=== PATIENT | female | born 1985 | race African-American/Black ===

== ENCOUNTER 2017-11-04 06:59 | Inpatient (IN) ==
[2017-11-04] MEDS ORDERED: BUTORPHANOL 1 MG/ML VIAL IV PRN (07:36)
[2017-11-04] MEDS ORDERED: BUTORPHANOL 2 MG/ML VIAL IV PRN (07:36)
[2017-11-04] MEDS ORDERED: ONDANSETRON 4 MG/2 ML VIAL IV PRN ×2 (07:36→13:18)
[2017-11-04] MEDS: LACTATED RINGERS 1,000 ML IV SCH ×2 (07:47→10:28)
[2017-11-04] MEDS ORDERED: AMPICILLIN INJ 2,000 MG in SODIUM CHLORIDE 0.9% 100 ML IV ONE (07:50)
[2017-11-04] MEDS ORDERED: OXYTOCIN/LR 20 UNIT/1,000 ML BAG IV SCH (08:00)
[2017-11-04 08:12] LABS: Basophils % 0.4 % (0.0-0.8); Eosinophils # 0.1 10*3/uL (0.0-0.87); Eosinophils % 1.1 % (0.00-10.9); Hematocrit 34.8 VOL% (35.7-47.0); Hemoglobin 11.4 GM/DL (12.0-16.0); Immature Granulocytes % 0.7 %; Immature Granulocytes Absolute 0.05 #; Lymphocytes # 1.8 10*3/uL (1.4-4.0); Lymphocytes % 24.2 % (21.3-54.2); Mean Corpuscular HGB Conc 32.8 GM/DL (32-36); Mean Corpuscular Hemoglobin 30 PG (27-34); Mean Corpuscular Volume 91.8 FL (87-102); Mean Platelet Volume 10.8 FL (9.6-12.0); Monocytes # 0.7 10*3/uL (0.11-0.8); Monocytes % 9.4 % (1.7-12.7); Neutrophils # 4.9 10*3/uL (1.4-7.4); Neutrophils % 64.2 % (38.7-73.9); Platelet Count 217 T/CUMM (130-400); Red Blood Count 3.79 MC/CUMM (3.8-5.5); Red Cell Distribution Width 14.8 % (9.3-17.3); White Blood Count 7.6 T/CUMM (4-12)
[2017-11-04] MEDS ORDERED: MEPERIDINE 50 MG/1 ML VIAL IV PRN (08:19)
[2017-11-04 08:42] LABS: Albumin 2.8 G/DL (3.4-5.0); Bilirubin,Total 0.4 MG/DL (0.2-1.0); Calcium 8.3 MG/DL (8.5-10.1); Osmolality,Calculated 271.7 MOS/KG (273-304); Total Protein 6.7 G/DL (6.4-8.3)
[2017-11-04] MEDS ORDERED: diphenhydrAMINE 50 MG/1 ML VIAL IV PRN ×2 (09:51)
[2017-11-04] MEDS ORDERED: PROMETHAZINE 25 MG/1 ML VIAL IM ONE (09:51)
[2017-11-04] MEDS ORDERED: hydrOXYzine HCL 25 MG/1 ML VIAL IM PRN (09:51)
[2017-11-04] MEDS ORDERED: ePHEDrine 50 MG/ML AMP IV PRN (09:51)
[2017-11-04] MEDS ORDERED: ONDANSETRON 4 MG/2 ML VIAL IV ONE (09:51)
[2017-11-04] MEDS ORDERED: CITRIC ACID/SODIUM CITRATE 30 ML UDCUP PO ONE (09:52)
[2017-11-04] MEDS ORDERED: FAMOTIDINE 20 MG/2 ML VIAL IV ONE (09:52)
[2017-11-04] MEDS ORDERED: fentaNYL 2 MCG/ROPIV 0.2% EPID 150 ML EPIDURAL SCH (10:00)
[2017-11-04] MEDS ORDERED: AMPICILLIN INJ 1,000 MG in SODIUM CHLORIDE 0.9% 100 ML IV SCH (12:00)
[2017-11-04 12:19] LABS: Apearance,Urine CLEAR (Clear); Bilirubin,Urine Negative (Negative); Blood, Urine Negative (Negative); Glucose,Urine (UA) Negative (Negative); Ketones,Urine Negative (Negative); Mucus,Urine Occasional /LPF (Occasional); Nitrite,Urine Negative (Negative); Protein,Urine Negative; RBC,Urine 1 /HPF (0-4); Squamous Epithelial Cell,Urine Occasional /HPF (0-10); Urine Color Yellow (Yellow); Urine Specific Gravity 1.024 (1.001-1.035); Urine Urobilinogen < 2.0 EU/DL (0.2-1.0); WBC,Urine 2 /HPF (0-6)
[2017-11-04] MEDS ORDERED: miSOPROStol 200 MCG TABLET ONE (13:00)
[2017-11-04] MEDS ORDERED: METHYLERGONOVINE 0.2 MG/1 ML AMP ONE (13:00)
[2017-11-04] MEDS ORDERED: OXYTOCIN/LR 20 UNIT/1,000 ML BAG IV ONE (13:18)
[2017-11-04] MEDS ORDERED: ACETAMINOPHEN 325 MG TABLET PO PRN (13:18)
[2017-11-04] MEDS ORDERED: HYDROCORTISONE 2.5% RECTAL CREAM 30 GM TUBE TOP PRN (13:18)
[2017-11-04] MEDS ORDERED: BISACODYL 10 MG SUPP RECTAL PRN (13:18)
[2017-11-04] MEDS ORDERED: BENZOCAINE 20%/MENTHOL 0.5% SPRAY 56 GM CAN TOP PRN (13:18)
[2017-11-04] MEDS ORDERED: LANOLIN 50% CREAM 0.3 OZ TUBE TOP PRN (13:18)
[2017-11-04] MEDS ORDERED: WITCH HAZEL PADS 100/JAR TOP PRN (13:18)
[2017-11-04] MEDS ORDERED: oxyCODONE/ACETAMINOPHEN 5-325 MG TABLET PO PRN (13:18)
[2017-11-04] MEDS ORDERED: DIPH/TET/ACEL PERT BOOSTER VACCINE 0.5 ML VIAL IM ONE (13:30)
[2017-11-04] MEDS ORDERED: MEASLES/MUMPS/RUBELLA VACCINE 0.5 ML VIAL SUBCUT ONE (13:30)
[2017-11-04] MEDS ORDERED: RHO(D) IMMUNE GLOBULIN 300 MCG SYRINGE IM ONE (14:00)
[2017-11-04] MEDS: DOCUSATE SODIUM 100 MG CAPSULE PO SCH (20:53)
[2017-11-05] MEDS: IBUPROFEN 800 MG TABLET PO PRN ×2 (03:03→12:23)
[2017-11-05] MEDS: oxyCODONE/ACETAMINOPHEN 5-325 MG TABLET PO PRN ×2 (03:04→12:23)
[2017-11-05 06:59] LABS: Basophils % 0.5 % (0.0-0.8); Eosinophils # 0.1 10*3/uL (0.0-0.87); Eosinophils % 1.5 % (0.00-10.9); Hematocrit 30.5 VOL% (35.7-47.0); Hemoglobin 9.8 GM/DL (12.0-16.0); Immature Granulocytes % 0.5 %; Immature Granulocytes Absolute 0.04 #; Lymphocytes % 25.2 % (21.3-54.2); Mean Corpuscular HGB Conc 32.1 GM/DL (32-36); Mean Corpuscular Hemoglobin 30 PG (27-34); Mean Corpuscular Volume 92.7 FL (87-102); Mean Platelet Volume 10.6 FL (9.6-12.0); Monocytes # 0.6 10*3/uL (0.11-0.8); Monocytes % 7.9 % (1.7-12.7); Neutrophils # 5.2 10*3/uL (1.4-7.4); Neutrophils % 64.4 % (38.7-73.9); Platelet Count 163 T/CUMM (130-400); Red Blood Count 3.29 MC/CUMM (3.8-5.5); Red Cell Distribution Width 14.6 % (9.3-17.3); White Blood Count 8.1 T/CUMM (4-12)
[2017-11-05] MEDS: DOCUSATE SODIUM 100 MG CAPSULE PO SCH (08:31)
[2017-11-05] MEDS ORDERED: ONDANSETRON 4 MG TABLET PO PRN (11:59)
[2017-11-05 21:00] VITALS: BP 152/98
== END 2017-11-06 01:15 | disposition home or self-care (01) | DRG 560 ==
LOC: N.LDOUT 06:59 → N.LD 07:02 → N.OB 14:38
PROVIDERS: ADMIT Specialist; ATTEND Specialist